=== PATIENT | female | born 1970 | race Caucasian/White ===

== ENCOUNTER 2019-10-16 02:42 | Emergency (ER) | payer BC ==
[2019-10-16 02:51] VITALS: BP 139/92; PULSE 112; TEMP 98; BMI 28.8
[2019-10-16] MEDS ORDERED: ONDANSETRON 4 MG/2 ML VIAL IVPB ONE (03:03)
[2019-10-16] MEDS ORDERED: SODIUM CHLORIDE 1,000 ML ONE (03:03)
[2019-10-16] MEDS ORDERED: KETOROLAC TROMETHAMINE 30 MG/1 ML VIAL IVPUSH ONE (03:03)
[2019-10-16] MEDS ORDERED: ONDANSETRON 4 MG/2 ML VIAL ONE (03:07)
[2019-10-16] MEDS ORDERED: KETOROLAC TROMETHAMINE 30 MG/1 ML VIAL ONE (03:07)
--- NOTE | 2019-10-16 03:09 | PDOC ---
History of Present Illness - General Chief Complaint: Pain, Acute Stated Complaint: RIGHT SIDE PAIN Time Seen by Provider: 10/16/19 02:58 History Source: Patient Exam Limitations: No Limitations - History of Present Illness Initial Comments: 10/16/19 03:03 This is a 48-year-old female who comes in complaining of right flank pain radiating to her right lower quadrant. Patient has history of gallstones and family history of kidney stones and. Patient did lately kidney stones personally in the past. Patient said she had 2 episodes prior to arrival that were about 10 minutes in duration. They were associated with some nausea and severe pain. Patient denies any hematuria. Allergies: as per nursing notes Past Medical History: none Social history: Lives with family. No smoking. No alcohol. No illicit drugs. Surgical history: None General: No fevers or chills, no weakness, no weight loss HEENT: No change in vision. No sore throat,. No ear pain CardioVascular: no chest discomfort. No shortness of breath Respiratory:No cough, or wheezing. Gastrointestinal: + nausea, vomiting, diarrhea or constipation, No rectal bleeding Genitourinary: No dysuria, hematuria, or frequency, + right flank pain Musculoskeletal: No joint or muscle pain or swelling Neurologic: No headache, vertigo, dizziness or loss of consciousness Psychiatric: nor depression Skin: No rashes or easy bruising Endocrine: no increased thirst or abnormal weight change Allergic: no skin or latex allergy All other systems reviewed and normal Exam: General: Well-nourished well-developed individual, no acute distress HEENT: Throat: Normal, tonsils normal, no erythema or exudate Neck: Supple, no meningeal signs, no lymphadenopathy Eyes::Pupils equal reactive and round, extraocular motion intact Chest: Nontender to palpation Cardiac: S1-S2 normal, regular rate and rhythm, no murmurs rubs or gallops Respiratory: Lungs clear to auscultation bilateral Abdomen: Soft, nondistended, normal bowel sounds, there is no tenderness on palpation diffusely Backslash flank: There is right CVA tenderness and right flank tenderness on palpation. Extremities: Warm, dry, no cyanosis, clubbing, or edema Skin: No rashes Neuro: Alert and oriented x3, CN II - XII intact, nonfocal exam with normal strength, normal sensation, normal reflexes, normal gait, Psych: Normal mood and affect Assessment and plan: This is a 48-year-old female who comes in complaining of right flank pain radiating to her right lower quadrant right patient is currently free at this time however prior to her arrival she had a 10 out of 10 pain. Work-up initiated for renal stone and patient given fluids and pain medication. Past History - Medical History Allergies/Adverse Reactions: Allergies Allergy/AdvReac Type Severity Reaction Status Date / Time cetirizine [From [facility]] Allergy Verified 10/16/19 02:46 Home Medications: Ambulatory Orders Ondansetron [Zofran *Odt*] 8 mg SL TID #15 od.tablet 10/16/19 Oxycodone HCl/Acetaminophen [Percocet 5-325 mg Tablet] 1 - 2 tab PO Q4H #20 tablet MDD 8 10/16/19 COPD: No Diabetes: Yes GI Disorders: Yes (GALL STONES) HTN: Yes Other medical history: MIGRAINES - Immunization History Immunization Up to Date: No - Psycho-Social/Smoking History Smoking History: Never smoked Have you smoked in the past 12 months: No - Substance Abuse Hx (Audit-C & DAST Scrn) How often the patient has a drink containing alcohol: Never Score: In Men: 4 or > Positive; In Women: 3 or > Positive: 0 Screen Result (Pos requires Nsg. Audit-10AR): Negative In the last yr the pt used illegal drug/Rx for NonMed reason: No Score: Yes response is considered Positive: 0 Screen Result (Positive result requires Nsg. DAST-10): Negative *Physical Exam - Vital Signs Last Vital Signs Temp Pulse Resp BP Pulse Ox 98.0 F 112 H 16 139/92 99 10/16/19 02:46 10/16/19 02:46 10/16/19 02:46 10/16/19 02:46 10/16/19 02:46 ED Treatment Course - LABORATORY CBC & Chemistry Diagram: 10/16/19 03:15 10/16/19 03:15 Discharge - Discharge Information Problems reviewed: Yes Clinical Impression/Diagnosis: Kidney stone on right side Condition: Stable Disposition: HOME - Admission No - Follow up/Referral Referrals: Aung Woods MD [Staff Physician] - - Patient Discharge Instructions Additional Instructions: Take Tylenol or Motrin as needed for the pain however if you need something str onger I have sent a prescription to your pharmacy for Percocet you can take the Percocet 1 tablet as often 1 or 2 tablets as often as every 4-6 hours if needed. It is very important that you stay well-hydrated. The Percocet will make you drowsy so do not take it if you have to do anything that requires your concentration. Often the pain does also cause nausea so I have sent a prescription for Zofran to your pharmacy you can take 1 tablet as often as every 6-8 hours for the nausea it can dissolve under your tongue instead of being swallowed. Follow-up with a urologist I have given you the name of 1. Return to the emergency department immediately with ANY new, persistent or worsening symptoms. Continue any medications as previously prescribed by your physician. You should follow up with your primary doctor as soon as possible regarding today's emergency department visit. . Please make sure your doctor reviews the results of your emergency evaluation. Thank you for coming to the Emergency Department today for your care. It was a pleasure to see you today. Please note that your evaluation is INCOMPLETE until you follow-up with your doctor. - Post Discharge Activity
[2019-10-16 04:12] LABS: BASO % 0.6 % (0-2.0); EOS % 1.1 % (0-4.5); HEMATOCRIT 48.8 % (32.4-45.2); HEMOGLOBIN 16.4 GM/dL (10.7-15.3); LYMPH % 20.2 % (8-40); MCH 31.3 pg (25.7-33.7); MCHC 33.7 g/dl (32.0-36.0); MEAN CELL VOLUME 93.1 fl (80-96); MEAN PLT VOLUME 9.8 fl (7.5-11.1); MONO % 5.9 % (3.8-10.2); NEUT % 72.2 % (42.8-82.8); PLATELET COUNT 254 K/MM3 (134-434); RBC 5.25 M/mm3 (3.60-5.2); RDW 13.5 % (11.6-15.6)
[2019-10-16 04:27] LABS: EPI CELLS 7 /uL (0-25.1); HYALINE CASTS 2 /uL (0-3.1); URINE APPEARANCE CLOUDY; URINE BACTERIA 45 /uL (0-1359); URINE BILIRUBIN NEGATIVE (NEGATIVE); URINE COLOR YELLOW; URINE GLUCOSE (UA) NEGATIVE (NEGATIVE); URINE KETONE 1+ (NEGATIVE); URINE LEUK ESTERASE TRACE (NEGATIVE); URINE NITRITE NEGATIVE (NEGATIVE); URINE PROTEIN 1+ (NEGATIVE); URINE RBC 358 /uL (0-23.9); URINE UROBILINOGEN 0.2 mg/dL (0.2-1.0); URINE WBC 64 /uL (0-25.8)
[2019-10-16 04:34] LABS: ALBUMIN 4.6 g/dl (3.4-5.0); BILIRUBIN,TOTAL 0.5 mg/dL (0.2-1); BLOOD UREA NITROGEN 20.1 mg/dL (7-18); CALCIUM 9.6 mg/dL (8.5-10.1); POTASSIUM 3.4 mmol/L (3.5-5.1); TOT PROT 7.7 g/dl (6.4-8.2)
== END 2019-10-16 05:44 | disposition home or self-care (01) ==
LOC: FER 02:42
PROC: 3E033GC Introduction of Other Therapeutic Substance into Peripheral Vein, Percutaneous Approach (ICD-10-PCS; principal; 2019-10-16)
PROC: 3E0337Z Introduction of Electrolytic and Water Balance Substance into Peripheral Vein, Percutaneous Approach (ICD-10-PCS; principal; 2019-10-16)
DX: N20.0 Calculus of kidney (principal)
CPT/HCPCS: 36415; 74176-TC; 80053; 81003; 85025; 99285-25